=== PATIENT | female | born 1980 | race Caucasian/White ===

== ENCOUNTER 2022-09-30 13:32 | Emergency (ER) | payer MEDICAID, OTHER ==
[2022-09-30] MEDS ORDERED: HYDROcodone-ACET 5/325MG TAB PO ONE (14:30)
[2022-09-30] MEDS ORDERED: CEPH-510 PO (15:45)
[2022-09-30] MEDS ORDERED: IBUP800T27 PO (15:45)
== END 2022-09-30 16:14 | disposition home or self-care (01) ==
LOC: EDBD 13:32 → ER 13:32
DX: S01.01XA Laceration without foreign body of scalp, initial encounter (principal); S76.012A Strain of muscle, fascia and tendon of left hip, initial encounter; Z79.1 Long term (current) use of non-steroidal anti-inflammatories (NSAID); Z79.899 Other long term (current) drug therapy; V03.99XA Pedestrian with other conveyance injured in collision with car, pick-up truck or van, unspecified whether traffic or nontraffic accident, initial encounter; Y93.89 Activity, other specified; Y92.89 Other specified places as the place of occurrence of the external cause; Y99.8 Other external cause status
CPT/HCPCS: 12002; 70450; 73502

== ENCOUNTER 2023-05-19 09:44 | Emergency (ER) | payer MEDICAID ==
[~2023-05-19] VITALS: Ht 165.1 cm; Wt 66.6 kg
[~2023-05-19 09:44] MED LIST: CEPH-510 PO; IBUP-1456 PO
[2023-05-19 10:38] VITALS: BP 141/90; PULSE 74; RESP 18; TEMP 97.4; O2SAT 98
== END 2023-05-19 11:28 | disposition home or self-care (01) ==
LOC: ER 09:44
DX: S00.03XA Contusion of scalp, initial encounter (principal); S40.021A Contusion of right upper arm, initial encounter; Z79.1 Long term (current) use of non-steroidal anti-inflammatories (NSAID); Z79.899 Other long term (current) drug therapy; V49.88XA Car occupant (driver) (passenger) injured in other specified transport accidents, initial encounter; Y93.I9 Activity, other involving external motion; Y92.89 Other specified places as the place of occurrence of the external cause; Y99.8 Other external cause status
CPT/HCPCS: 70450

== ENCOUNTER 2023-12-10 12:12 | Emergency (ER) | payer MEDICAID, OTHER ==
[~2023-12-10] VITALS: Ht 165.1 cm; Wt 67.6 kg
[2023-12-10] MEDS ORDERED: IBUP-1455 PO (15:58)
[2023-12-10] MEDS ORDERED: CYCL-839 PO (15:58)
[2023-12-10] MEDS: KETOROLAC TROMETH 30 MG/ML 1ML VIAL IM ONE (16:32)
[2023-12-10] MEDS: CYCLOBENZAPRINE HCL 10 MG TAB PO ONE (16:32)
[2023-12-10 16:35] VITALS: BP 133/79; PULSE 90; RESP 20; TEMP 98; O2SAT 99
== END 2023-12-10 16:41 | disposition home or self-care (01) ==
LOC: ER 12:12
DX: M54.2 Cervicalgia (principal); M54.6 Pain in thoracic spine; Z79.1 Long term (current) use of non-steroidal anti-inflammatories (NSAID); Z79.899 Other long term (current) drug therapy; V47.6XXA Car passenger injured in collision with fixed or stationary object in traffic accident, initial encounter; Y93.89 Activity, other specified; Y92.410 Unspecified street and highway as the place of occurrence of the external cause; Y99.8 Other external cause status
CPT/HCPCS: 72040; 96372; 99283; J1885